=== PATIENT | female | born 1955 | race Caucasian/White ===

== ENCOUNTER 2016-12-10 03:57 | Emergency (ER) | payer OTHER ==
[2016-12-10] MEDS ORDERED: DAILY MULTIPLE1 EACH PO (04:05)
--- NOTE | 2016-12-10 04:28 | ED NOSE COMPLAINT ---
History of Present Illness General Chief Complaint: Epistaxis/Nasal Foreign Body Stated Complaint: NOSE BLEEDING Source: patient, family, old records, EMS Exam Limitations: no limitations Vital Signs & Intake/Output Vital Signs & Intake/Output Vital Signs Date Time Temp Pulse Resp B/P B/P Pulse O2 O2 Flow FiO2 Mean Ox Delivery Rate 12/10 0706 96.3 75 16 120/61 98 Room Air 12/10 0401 97.5 98 16 128/77 97 Room Air Allergies Coded Allergies: erythromycin base (Severe, STOMACH PAINS 12/10/16) Reconcile Medications Cephalexin (Keflex) 500 MG CAPSULE 1 CAP PO TID nasal packing Multivitamin (Daily Multiple Vitamin) 1 EACH TABLET 1 TAB PO DAILY SUPPLEMENT (Reported) Triage Note: 61 YO FEMALE JUSTINA FROM HOME. PT STATSE HER NOSE STARTED TO BLEED AT 0930PM. NO ACTIVE BLEEDING AT THIS TIME. PT NOT ON BLOOD THINNERS. NO INJURY TO NOSE PER PT. Triage Nurses Notes Reviewed? yes Onset: Morning Duration: hour(s):, better, changing over time, continues in ED Timing: recent history Injury Environment: home Severity: severe No Modifying Factors: none LMP (ages 10-50): post menopausal : No Patient currently breastfeeds: No HPI: 1 day prior to admission patient complains of intermittent left-sidedbleeding becoming worse prior to admission and occurring bilaterally. She denies fever chills nausea vomiting diarrhea abdominal pain chest pain shortness breath headache dysuria rash. (CITLALI MCDONALD MD) Past History Travel History Traveled to [place] past 21 day No Medical History Any Pertinent Medical History? 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 No (CITLALI MCDONALD MD) Review of Systems Review of Systems Constitutional: Reports: no symptoms. EENTM: Reports: see HPI. Respiratory: Reports: no symptoms. Cardiovascular: Reports: no symptoms. GI: Reports: no symptoms. Genitourinary: Reports: no symptoms. Musculoskeletal: Reports: no symptoms. Skin: Reports: no symptoms. Neurological/Psychological: Reports: no symptoms. Hematologic/Endocrine: Reports: no symptoms. Immunologic/Allergic: Reports: no symptoms. All Other Systems: Reviewed and Negative (CITLALI MCDONALD MD) Physical Exam Physical Exam General Appearance: well developed/nourished, alert, awake, anxious, moderate distress Head: atraumatic, normal appearance Eyes: Bilateral: normal appearance, PERRL, EOMI. Ears: Bilateral: canal normal, Tympanic normal. 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 (CITLALI MCDONALD MD) Comments: 12/10/2016 8:35:01 AM patient signed out to me by Dr. Mcdonald. This seems to be no active bleeding at this time. The patient will try some sips of abby [place] prior to discharge. (CORTEZ GONZALEZ MD) Departure Departure Disposition: HOME OR SELF CARE Condition: Stable Clinical Impression Primary Impression: Anterior epistaxis Referrals: MONTANA MELCHOR MD (PCP/Family) STEPHANIE HERNANDEZ MD Call for ENT follow up Departure Forms: Customer Survey General Discharge Information Prescriptions: Current Visit Scripts Cephalexin (Keflex) 1 CAP PO TID #6 CAP (CITLALI MCDONALD MD) Departure Additional Instructions: Please contact Dr. BUI'S office tomorrow and arrange for follow-up appointment this week. Notify your primary care doctor this emergency department visit and treatment plan. antibiotics as prescribed to prevent secondary infection. Return if any concerns or sudden worsening. Thank you for choosing the [facility] Emergency Department for your care. It was a pleasure to serve you today. Cortez Gonzalez M.D. [facility] (BISI CURRY,CORTEZ Troncoso) Procedures Epistaxis/Nasal Foreign Body Status: no bleeding (initially then began bleeding) Clots Cleared Nasal Passage: by patient blowing Nasal Drops Instilled: Bilateral: Afphrin. Ext Pressure/Nose Pinch (min): 15 Inspected With: otoscope Bleeding Site: not visible Observe for Bleedin Hemostatic Nasal Balloon: Bilateral: Inserted Anterior. (TAMARA CURRY,CITLALI)
[2016-12-10] MEDS ORDERED: KEFLEX500 M1 PO (06:39)
[2016-12-10 08:57] VITALS: BP 132/68
== END 2016-12-10 09:21 ==
LOC: ERH 03:57
DX: R04.0 Epistaxis (principal); F17.210 Nicotine dependence, cigarettes, uncomplicated

== ENCOUNTER 2016-12-13 02:56 | Emergency (ER) | payer OTHER ==
[~2016-12-13] VITALS: Ht 162.6 cm; Wt 49.9 kg
[~2016-12-13 02:56] MED LIST: DAILY MULTIPLE1 EACH PO; KEFLEX500 M1 PO
--- NOTE | 2016-12-13 04:43 | ED GENERAL ADULT ---
History of Present Illness General Chief Complaint: Epistaxis/Nasal Foreign Body Stated Complaint: PT W/ EPISTAXIS SEEN HERE 12/916 Source: patient Exam Limitations: no limitations Vital Signs & Intake/Output Vital Signs & Intake/Output ED Intake and Output 12/14 0000 12/13 1200 Intake Total Output Total Balance Patient 110 lb Weight Weight Reported by Patient Measurement Method Allergies Coded Allergies: erythromycin base (Severe, STOMACH PAINS 12/13/16) Reconcile Medications Cephalexin (Keflex) 500 MG CAPSULE 1 CAP PO TID nasal packing Multivitamin (Daily Multiple Vitamin) 1 EACH TABLET 1 TAB PO DAILY SUPPLEMENT (Reported) Tramadol HCl (Ultram) 50 MG TABLET 1-2 TAB PO Q6P PRN PAIN Triage Note: TRIAGE: PATIENT TO ER FROM HOME REPORTS SEEN HERE 12/10/16, RHINO ROCKET PLACED IN BOTH NOSTRILS. PATIENT REPORTS CONTINUED INTERMITTENT BLEEDING TO BILATERAL NOSTRILS AND ?R RHINO ROCKET "FELL OUT." REPORTS SAW ENT THIS WEEK AND HAS ANOTHER APPT SCHEDULLED LATER THIS WEEK, RECCOMENDED TO COME IN TO ER TONIGHT D/T UNCONTROLLED BLEEDING DESPITE APPLYING PRESSURE BY ON-CALL ENT. INITIAL ONSET EPITAXIS SUNDAY NIGHT. DENIES ANY BLOODTHINNERS. Triage Nurses Notes Reviewed? yes HPI: 61 yo F presents with evaluation for nose bleed. According to the patient her right rhino racket fell out 2 hours ago and her nose has been bleeding since then. She reports no other problems and otherwise seems to be doing well. (PERRI DE LA CRUZ MD) Onset: Abrupt Duration: hour(s):, constant, continues in ED, getting worse Severity: severe (BISI CURRY,JOSE ARMANDO Troncoso) Past History Travel History Traveled to [place] past 21 day No Medical History Any Pertinent Medical History? 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 No (PERRI DE LA CRUZ MD) Review of Systems Review of Systems Constitutional: Reports: no symptoms. (PERRI DE LA CRUZ MD) Physical Exam Physical Exam General Appearance: well developed/nourished, mild distress Head: atraumatic, normal appearance Ears, Nose, Throat: nasal bleed Core Measures ACS in differential dx? No CVA/TIA Diagnosis: No Severe Sepsis Present: No Septic Shock Present: No (PERRI DE LA CRUZ MD) Progress Differential Diagnoses Rhino Rocket displacement Epistaxis Plan of Care: Rhino rocket placed. Patient appears to be doing well now. Initial ED EKG: none (PERRI DE LA CRUZ MD) Comments: 12/13/2016 5:43:47 AM after replacement of the right nostril rhino rocket Guerita symptoms seemed to settle down. However she began vomiting and retching secondary to postnasal bleeding. I was able to augment the air in both rhino rockets with cessation of bleeding. Patient feels comfortable returning home and is currently calling for a ride. (BISI CURRY,JOSE ARMANDO Troncoso) Departure Departure Disposition: HOME OR SELF CARE Condition: Stable Departure Forms: Customer Survey General Discharge Information Prescriptions: Current Visit Scripts Tramadol HCl (Ultram) 1-2 TAB PO Q6P PRN PAIN #20 TAB (PERRI DE LA CRUZ MD) Departure Clinical Impression Primary Impression: Epistaxis Referrals: JILL CURRY,MONTANA (PCP/Family) DAVID CURRY,STEPHANIE Jenkins Additional Instructions: Follow-up with the ear nose and throat doctor as previously instructed. Keep these balloon catheters in place at all times. Tramadol as needed for pain. Return if any concerns or sudden worsening. Resident Co-Sign Statement Statement: ED Attending supervision documentation- [X] I saw and evaluated the patient. I have also reviewed all the pertinent lab results and diagnostic results. I agree with the findings and the plan of care as documented in the Resident's documentation. [] I have reviewed the ED Record and agree with the Resident's documentation. [] Additions or exceptions (if any) to the Resident's note and plan are summarized below: [] (BISI CURRY,JOSE ARMANDO Troncoso) Procedures Epistaxis/Nasal Foreign Body Nasal Rocket: Right: Inserted Anterior, Inserted Posterior. (PERRI DE LA CRUZ MD) Critical Care Note Critical Care Note Critical Care Time: non-applicable (PERRI DE LA CRUZ MD) ED Attending Observation Initial Observation Note: I have seen and personally examined SINA DELGADO on 12/13/16 at 0440. I agree with the current emergency department documentation. The disposition (admission or discharge) is uncertain at this time, she needs a period of observation for the following reason(s): The ED Nurse caring for this patient has been personally informed as to what the patient is being observed for. (DOROTHY CURRY,PERRI)
[2016-12-13 05:43] VITALS: BP 142/76
[2016-12-13] MEDS ORDERED: ULTRAM50 M1 PO (05:51)
== END 2016-12-13 06:10 ==
LOC: ERH 02:56
DX: R04.0 Epistaxis (principal)

== ENCOUNTER 2018-02-22 00:56 | Emergency (ER) | payer OTHER ==
[~2018-02-22] VITALS: Ht 152.4 cm; Wt 59.0 kg
[~2018-02-22 00:56] MED LIST changes: +ULTRAM50 M1 PO
[2018-02-22 01:16] VITALS: BP 136/84
--- NOTE | 2018-02-22 02:24 | ED NOSE COMPLAINT ---
History of Present Illness General Chief Complaint: Epistaxis/Nasal Foreign Body Stated Complaint: PT WS DISCHARED FROM ER BACK C/O EPISTAXIS RESUME Source: patient, family, old records Exam Limitations: no limitations Vital Signs & Intake/Output Vital Signs & Intake/Output Vital Signs Date Time Temp Pulse Resp B/P B/P Pulse O2 O2 Flow FiO2 Mean Ox Delivery Rate 02/22 0116 98.2 92 20 136/84 97 Room Air Allergies Coded Allergies: erythromycin base (Severe, STOMACH PAINS 12/13/16) Reconcile Medications Cephalexin (Keflex) 500 MG CAPSULE 1 CAP PO TID nasal packing Multivitamin (Daily Multiple Vitamin) 1 EACH TABLET 1 TAB PO DAILY SUPPLEMENT (Reported) Tramadol HCl (Ultram) 50 MG TABLET 1-2 TAB PO Q6P PRN PAIN Triage Note: PT JUST DISCHARGED FROM ED FOR NOSE BLEED AND RETURNS WITH NOSE BLEEDING. PT WHEELED TO ROOM 11. DR MCDONALD TO ROOM. Triage Nurses Notes Reviewed? yes Onset: Just prior to arrival Duration: minute(s):, constant, gone now Timing: recent history Injury Environment: home Severity: moderate, severe No Modifying Factors: none LMP (ages 10-50): post menopausal : No Patient currently breastfeeds: No HPI: Patient returns with recurrent nosebleed that has now stopped. She does not know which side her nose was bleeding from. She denies fever chills nausea vomiting diarrhea abdominal pain chest pain shortness of breath dysuria rash headache. Past History Travel History Traveled to [place] past 21 day No Medical History Any Pertinent Medical History? 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 No Review of Systems Review of Systems Constitutional: Reports: no symptoms, see HPI. Respiratory: Reports: no symptoms. Cardiovascular: Reports: no symptoms. GI: Reports: no symptoms. Genitourinary: Reports: no symptoms. Musculoskeletal: Reports: no symptoms. Skin: Reports: no symptoms. Neurological/Psychological: Reports: no symptoms. Hematologic/Endocrine: Reports: no symptoms. Immunologic/Allergic: Reports: no symptoms. All Other Systems: Reviewed and Negative Physical Exam Physical Exam General Appearance: well developed/nourished, alert, awake, anxious, mild distress Head: atraumatic, normal appearance Eyes: Bilateral: normal appearance, PERRL, EOMI. Ears: Bilateral: canal normal, Tympanic normal. Nose: normal inspection Mouth/Throat: normal mouth inspection, pharynx normal Neck: normal inspection, supple, full range of motion, trachea midline Cardiovascular/Respiratory: normal breath sounds, normal peripheral pulses, regular rate/rhythm, no respiratory distress Back: normal inspection, normal range of motion, no vertebral tenderness Neurologic/Psych: no motor/sensory deficits, awake, alert, oriented x 3, normal gait, normal mood/affect Skin: intact, normal color, warm/dry Progress Differential Diagnoses I considered the following diagnoses in my evaluation of the patient: anterior or posterior epistaxis Plan of Care: Observation for bleeding Initial ED EKG: none Comments: No further bleeding after 3 hours of observation Departure Departure Time of Disposition: 0430 Disposition: HOME OR SELF CARE Condition: Stable Clinical Impression Primary Impression: Epistaxis Referrals: Shadi Rowley MD Call for ENT follow up or with your specialist. Halina Vega MD (PCP/Family) Departure Forms: Customer Survey General Discharge Information
[2018-02-24] MEDS ORDERED: AMOXICILLIN875 M1 PO (00:05)
[2018-02-24] MEDS ORDERED: NORCO 5-325 TA1 EACH PO (00:05)
== END 2018-02-22 04:59 ==
LOC: ERH 00:56
DX: R04.0 Epistaxis (principal)
CPT/HCPCS: 99282